=== PATIENT | female | born 1965 | race Caucasian/White ===

== ENCOUNTER 2017-04-22 10:52 | Emergency (ER) | payer OTHER, BC ==
[~2017-04-22] VITALS: Ht 167.6 cm; Wt 89.6 kg
[~2017-04-22 10:52] MED LIST: ALL180 PO; BUDESUS; FLUV100T12 PO; IBUP-1428 PO; IBUP600T44 PO; MULT-506 PO; OXYC-57 PO; VALA500T60 PO
[2017-04-22 10:54] VITALS: BP 152/88; PULSE 77; TEMP 36.6; O2SAT 98; Ht 167.6 cm; Wt 89.6 kg
[2017-04-22] MEDS ORDERED: ACETAMINOPHEN 500 MG TAB PO STA (11:31)
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
== END 2017-04-22 11:57 | disposition home or self-care (01) ==
LOC: C.EDB 10:53 → C.EDD 11:57
DX: S06.0X0A Concussion without loss of consciousness, initial encounter (principal); S46.912A Strain of unspecified muscle, fascia and tendon at shoulder and upper arm level, left arm, initial encounter; S39.012A Strain of muscle, fascia and tendon of lower back, initial encounter; V49.49XA Driver injured in collision with other motor vehicles in traffic accident, initial encounter; Z85.3 Personal history of malignant neoplasm of breast; F42.9 Obsessive-compulsive disorder, unspecified